=== PATIENT | female | born 1995 | race Two or more races ===

== ENCOUNTER 2023-05-14 15:28 | Outpatient (CLI) | payer OTHER | END 2023-05-14 17:46 | disposition home or self-care (01) | LOC: PRENATAL 15:28 | PROVIDERS: ATTEND Obstetrics & Gynecology Maternal & Fetal Medicine | DX: O36.80X0 Pregnancy with inconclusive fetal viability, not applicable or unspecified (principal); Z36 Encounter for antenatal screening of mother; O99.280 Endocrine, nutritional and metabolic diseases complicating pregnancy, unspecified trimester; Z3A.13 13 weeks gestation of pregnancy ==

== ENCOUNTER 2023-09-26 14:11 | Outpatient (CLI) | payer OTHER | END 2023-09-26 14:12 | disposition home or self-care (01) | LOC: PRENATAL 14:11 | PROVIDERS: ATTEND Obstetrics & Gynecology Maternal & Fetal Medicine | DX: O26.849 Uterine size-date discrepancy, unspecified trimester (principal); O36.8199 Decreased fetal movements, unspecified trimester, other fetus; O99.280 Endocrine, nutritional and metabolic diseases complicating pregnancy, unspecified trimester; Z3A.32 32 weeks gestation of pregnancy ==

== ENCOUNTER 2023-11-06 14:48 | Inpatient (IN) | payer OTHER ==
[~2023-11-06] VITALS: Ht 167.6 cm; Wt 92.1 kg
[2023-11-06 15:29] LABS: PH,URINE 6.5 (5.0-8.0); URINE APPEARANCE Clear; URINE BILIRRUBIN Negative (NEGATIVE); URINE BLOOD Negative; URINE COLOR Yellow; URINE GLUCOSE Negative (NEGATIVE); URINE LEUKOCYTE Small; URINE NITRATE Negative; URINE PROTEIN Negative (NEGATIVE)
[2023-11-06 15:30] LABS: HEMATOCRIT 39.2 % (36.0-45.00); HEMOGLOBIN 13.6 g/dL (12.0-15.00); MEAN CELL VOLUME 85.5 fL (80.00-100.00); MEAN CORPUSCULAR HEMOGLOBIN 29.6 pg (27.00-32.0); MEAN CORPUSCULAR HGB CONC 34.7 g/dl (32.0-36.0); PLATELET COUNT 215 K/uL (150-450); RED BLOOD COUNT 4.58 M/uL (4.00-6.00); RED CELL DISTRIBUTION WIDTH 13.8 % (11.5-14.5)
[2023-11-06 15:32] LABS: URINE BACTERIA 1275.1 uL (0.0-1933); URINE EPITHELIAL CELLS 10.5 uL (0.0-38.8); URINE RBC 2.2 uL (0.0-20.8); URINE WBC 24.7 uL (0.0-23.2)
[2023-11-06 16:04] LABS: ALBUMIN 2.8 gm/dL (3.4-5.0); BILIRUBIN TOTAL 0.33 mg/dL (0.3-1.2); CALCIUM 9.3 mg/dL (8.5-10.1); CREATININE SERUM 0.5 mg/dL (0.55-1.02); GFR 149.14; POTASSIUM 4.05 mEq/L (3.5-5.1); TOTAL PROTEIN 6.8 gm/dL (6.4-8.2)
[2023-11-06 16:54] LABS: INR < 0.93; PARTIAL THROMBOPLASTIN TIME 25.7 SECONDS (22.0-34.0); PROTHROMBIN TIME 9.5 SECONDS (9.0-11.5)
[2023-11-19] MEDS ORDERED: AMPICILLIN SODIUM 2,000 MG VIAL ONE (05:48)
[2023-11-19] MEDS ORDERED: AMPICILLIN SODIUM 2,000 MG VIAL IV ONE (06:30)
[2023-11-19] MEDS ORDERED: RINGERS SOLUTION,LACTATED 1,000 ML IV SCH (06:30)
[2023-11-19 07:03] LABS: HEMATOCRIT 38.2 % (36.0-45.00); HEMOGLOBIN 13.3 g/dL (12.0-15.00); MEAN CELL VOLUME 83.8 fL (80.00-100.00); MEAN CORPUSCULAR HEMOGLOBIN 29.1 pg (27.00-32.0); MEAN CORPUSCULAR HGB CONC 34.7 g/dl (32.0-36.0); PLATELET COUNT 203 K/uL (150-450); RED BLOOD COUNT 4.56 M/uL (4.00-6.00); RED CELL DISTRIBUTION WIDTH 14.2 % (11.5-14.5)
[2023-11-19 07:26] LABS: ALBUMIN 2.7 gm/dL (3.4-5.0); BILIRUBIN TOTAL 0.33 mg/dL (0.3-1.2); CALCIUM 9.5 mg/dL (8.5-10.1); CREATININE SERUM 0.5 mg/dL (0.55-1.02); GFR 149.14; POTASSIUM 4.11 mEq/L (3.5-5.1); TOTAL PROTEIN 6.7 gm/dL (6.4-8.2)
[2023-11-19] MEDS ORDERED: PRENATAL TABLE1 EAC1 PO (07:36)
[2023-11-19] MEDS ORDERED: MISOPROSTOL 50 MCG TABLET VAG ONE (08:00)
[2023-11-19 08:18] LABS: INR < 0.93; PARTIAL THROMBOPLASTIN TIME 27.3 SECONDS (22.0-34.0); PROTHROMBIN TIME 9.4 SECONDS (9.0-11.5)
[2023-11-19] MEDS ORDERED: MISOPROSTOL 50 MCG TABLET ONE (08:26)
[2023-11-19] MEDS ORDERED: AMPICILLIN SODIUM 1,000 MG VIAL IV SCH (09:00)
[2023-11-19] MEDS ORDERED: PROMETHAZINE HCL 25 MG/ML AMPUL ONE (12:42)
[2023-11-19] MEDS ORDERED: MEPERIDINE HCL/PF 25 MG/ML VIAL IV ONE (12:45)
[2023-11-19] MEDS ORDERED: PROMETHAZINE HCL 25 MG/ML AMPUL IV ONE (12:45)
[2023-11-19] MEDS ORDERED: OXYTOCIN 500 ML IV SCH (12:45)
[2023-11-19] MEDS ORDERED: ERYTHROMYCIN BASE 1 GM TUBE OP ONE (15:53)
[2023-11-19] MEDS ORDERED: CHLORHEXIDINE GLUCONATE 120 ML BOTTLE TOP ONE (15:53)
[2023-11-19] MEDS ORDERED: LIDOCAINE HCL 100 MG/10ML VIAL ONE (15:54)
[2023-11-19] MEDS ORDERED: OXYTOCIN 10 UNITS/ML VIAL ONE (16:14)
[2023-11-19] MEDS ORDERED: OXYTOCIN 1,000 ML IV SCH (18:30)
[2023-11-19] MEDS ORDERED: ERYTHROMYCIN BASE 1 GM TUBE OP SCH (18:30)
[2023-11-19] MEDS ORDERED: CHLORHEXIDINE GLUCONATE 120 ML BOTTLE TOP SCH (18:30)
[2023-11-19] MEDS ORDERED: LIDOCAINE HCL 1% 200MG/20ML VIAL IJ SCH (18:30)
[2023-11-19] MEDS ORDERED: IBUprofen 400 MG TABLET PO PRN (18:30)
[2023-11-20 06:17] LABS: HEMATOCRIT 31.3 % (36.0-45.00); HEMOGLOBIN 11.1 g/dL (12.0-15.00); MEAN CELL VOLUME 84.8 fL (80.00-100.00); MEAN CORPUSCULAR HGB CONC 35.4 g/dl (32.0-36.0); PLATELET COUNT 186 K/uL (150-450); RED BLOOD COUNT 3.69 M/uL (4.00-6.00); RED CELL DISTRIBUTION WIDTH 14.1 % (11.5-14.5)
== END 2023-11-21 14:20 | disposition home or self-care (01) | DRG 807 ==
LOC: LDR 11-19 05:21 → OB/GYN 11-19 15:00
PROVIDERS: Obstetrics & Gynecology; ADMIT Obstetrics & Gynecology; ATTEND Obstetrics & Gynecology
PROC: 10E0XZZ Delivery of Products of Conception, External Approach (ICD-10-PCS; principal; 2023-11-19)
PROC: 0KQM0ZZ Repair Perineum Muscle, Open Approach (ICD-10-PCS; 2023-11-19)
PROC: 0W8NXZZ Division of Female Perineum, External Approach (ICD-10-PCS; 2023-11-19)
PROC: 3E033VJ Introduction of Other Hormone into Peripheral Vein, Percutaneous Approach (ICD-10-PCS; 2023-11-19)
PROC: 3E0P7VZ Introduction of Hormone into Female Reproductive, Via Natural or Artificial Opening (ICD-10-PCS; 2023-11-19)
PROC: 4A1HXCZ Monitoring of Products of Conception, Cardiac Rate, External Approach (ICD-10-PCS; 2023-11-19)
DX: O70.1 Second degree perineal laceration during delivery (principal); Z37.0 Single live birth; O99.824 Streptococcus B carrier state complicating childbirth; Z3A.40 40 weeks gestation of pregnancy; Z20.822 Contact with and (suspected) exposure to COVID-19

== ENCOUNTER 2023-11-13 12:32 | Outpatient (CLI) | payer OTHER | END 2023-11-13 13:35 | disposition home or self-care (01) | LOC: NST 12:32 | PROVIDERS: ATTEND Obstetrics & Gynecology | DX: Z34.83 Encounter for supervision of other normal pregnancy, third trimester (principal) ==